=== PATIENT | male | born 1955 | race Caucasian/White ===

== ENCOUNTER 2021-09-19 07:49 | Outpatient (RCR) | payer MEDICARE, SELFPAY | END 2021-09-27 23:59 | disposition home or self-care (01) | LOC: SPT 07:49 | PROVIDERS: Visit Provider Otolaryngology | DX: C73 Malignant neoplasm of thyroid gland (principal); I89.0 Lymphedema, not elsewhere classified | CPT/HCPCS: 97140; 97161 ==

== ENCOUNTER 2021-09-28 06:00 | Outpatient (RCR) | payer MEDICARE, SELFPAY | END 2021-10-27 23:59 | disposition home or self-care (01) | LOC: SPT 06:00 | PROVIDERS: Visit Provider Otolaryngology | DX: C73 Malignant neoplasm of thyroid gland (principal) | CPT/HCPCS: 97140 ==

== ENCOUNTER 2022-01-10 06:00 | Outpatient (RCR) | payer MEDICARE, SELFPAY | END 2022-01-27 23:59 | disposition home or self-care (01) | LOC: SPT 06:00 | PROVIDERS: Visit Provider Otolaryngology | DX: Z48.89 Encounter for other specified surgical aftercare (principal); M25.512 Pain in left shoulder | CPT/HCPCS: 97110; 97161 ==

== ENCOUNTER 2022-01-28 06:00 | Outpatient (RCR) | payer MEDICARE, SELFPAY | END 2022-02-27 23:59 | disposition home or self-care (01) | LOC: SPT 06:00 | PROVIDERS: Visit Provider Otolaryngology | DX: C73 Malignant neoplasm of thyroid gland (principal); R29.898 Other symptoms and signs involving the musculoskeletal system | CPT/HCPCS: 97110 ==